=== PATIENT | male | born 1960 | race Caucasian/White ===

== ENCOUNTER 2018-02-25 09:21 | Emergency (ER) | payer BC ==
[2018-02-25] MEDS ORDERED: SODIUM CHLORIDE 0.9% 500 ML IV ONE (09:43)
[2018-02-25] MEDS ORDERED: ONDANSETRON HCL IV 4 MG/2 ML VIAL IV ONE (09:43)
[2018-02-25] MEDS ORDERED: HYDROMORPHONE HCL 2 MG/ML VIAL IVP ONE (09:48)
--- NOTE | 2018-02-25 09:48 | Emergency Department Record ---
History of Present Illness - General Chief Complaint: Abdominal Pain Stated Complaint: RIGHT SIDE PAIN Time Seen by Provider: 02/25/18 09:41 Source: Patient Mode of Arrival: Ambulatory Limitations: No limitations - History of Present Illness Initial Comments: The patient is here due the acute onset of RUQ AP about 3 hours ago. The pain is sharp and crampy and is associated with mild nausea but no vomiting. The patient does have a hx of kidney stones in the past and the pain was similar to that. He denies any recent illnesses. MD Complaint: Abdominal pain Onset/Timin -: Hour(s) - Related Data Allergies Allergy/AdvReac Type Severity Reaction Status Date / Time No Known Drug Allergies Allergy Unverified 02/25/18 08:56 Travel Screening - Travel/Exposure Within Last 30 Days Have you traveled within the last 30 days?: No - Travel/Exposure Within Last Year Have you traveled outside the [place] in the last year?: No - Additonal Travel Details Have you been exposed to anyone with a communicable illness?: No - Travel Symptoms Symptom Screening: None Review of Systems Constitutional: Denies: Chills, Fever Eyes: Denies: Eye discharge ENT: Denies: Congestion Respiratory: Denies: Cough, Dyspnea Cardiovascular: Denies: Arrhythmia Endocrine: Denies: Fatigue Gastrointestinal: Reports: Abdominal pain Genitourinary: Denies: Dysuria Musculoskeletal: Denies: Arthralgia Past Medical History - SOCIAL HISTORY Smoking Status: Never smoker Alcohol Use: Occasional - RESPIRATORY Hx Respiratory Disorders: Yes Hx Asthma: Yes - CARDIOVASCULAR Hx Cardio Disorders: No - NEURO Hx Neuro Disorders: No - GI Hx GI Disorders: Yes Hx Reflux: Yes - Hx Genitourinary Disorders: No - ENDOCRINE Hx Endocrine Disorders: No - MUSCULOSKELETAL Hx Musculoskeletal Disorders: Yes Hx Arthritis: Yes - PSYCH Hx Psych Problems: Yes Hx Depression: Yes - HEMATOLOGY/ONCOLOGY Hx Hematology/Oncology Disorders: No Family Medical History Any Significant Family History?: No Hx Cancer: Father Hx Heart Disease: Mother Physical Exam - General General Appearance: Alert, Oriented x3, Cooperative, No acute distress - Head Head exam: Atraumatic, Normocephalic, Normal inspection - Eye Eye exam: Normal appearance, PERRL, EOMI - Neck Neck exam: Normal inspection, Full ROM. negative: Tenderness - Respiratory Respiratory exam: Normal lung sounds bilaterally. negative: Respiratory distress - Cardiovascular Cardiovascular Exam: Regular rate, Normal rhythm, Normal heart sounds - GI/Abdominal GI/Abdominal exam: Soft, Tenderness (There is significant R sided abdominal tenderness.). negative: Rebound, Rigid - Extremities Extremities exam: Normal inspection, Full ROM, Normal capillary refill. negative: Tenderness - Neurological Neurological exam: Alert, Normal gait. negative: Abnormal gait, Motor sensory deficit Course Vital Signs 02/25/18 09:35 Temperature 98.1 F Pulse Rate 70 Respiratory 18 Rate Blood Pressure 165/87 Pulse Ox 97 - Reevaluation(s) Reevaluation #1: The patient is doing better at this time but is still having some pain. I did discuss the lab work and CT result and the need for F/U. 02/25/18 11:05 Reevaluation #2: The patient is doing a lot better now. I did again discuss what appears to be a recently passed ureter stone and also the cysts on the kidneys. He is to F/U with Dr. Hernandez for recheck and possibly outpatient testing for the cysts. 02/25/18 11:15 Medical Decision Making - Data Complexity MDM Data: Labs Ordered and/or Reviewed, X-Ray Ordered and/or Reviewed - Lab Data Result diagrams: 02/25/18 10:00 02/25/18 10:00 - Radiology Data Radiology results: Report reviewed (Abd CT: 2 mm recently passed stone in the bladder with mild residual hydro.) Disposition Disposition: Discharge Clinical Impression: Ureteral stone with hydronephrosis Disposition: Home, Self-Care Condition: (2) Stable Instructions: Renal Colic (ED) Additional Instructions: Please drink plenty of fluids and take the [place] today as directed. Please see Dr. Hernandez next week for recheck and have the official CT report evaluated further due to the kidney cysts. Please return to the ER for any worsening pain , fever, or vomiting. Forms: Patient Portal Access Time of Disposition: 11:18 Quality - Quality Measures Quality Measures: N/A - Blood Pressure Screening View Details: Yes Does Patient Have Any of the Following: No Blood Pressure Classification: Hypertensive Reading Systolic Measurement: 164 Diastolic Measurement: 72 Screening for High Blood Pressure: < First Hypertensive BP, F/U Documented > [ [id number]] First Hypertensive Follow-up Interventions: Referral to alternative/primary care provider.
[2018-02-25 10:10] LABS: HEMATOCRIT 45.4 % (42.0-52.0); HEMOGLOBIN 15.4 gm/dl (14.0-18.0); MEAN CELL VOLUME 90.8 fl (81-97); MEAN CORPUSCULAR HEMOGLOBIN 30.8 pg (27-33); MEAN CORPUSCULAR HGB CONC 33.9 g/dl (32-36); MEAN PLATELET VOLUME 9.6 fl (7.4-10.4); PLATELET COUNT 209 K/uL (130-400); URINE APPEARANCE CLEAR; URINE BILIRUBIN NEGATIVE (NEGATIVE); URINE BLOOD NEGATIVE (NEGATIVE); URINE COLOR YELLOW; URINE GLUCOSE (UA) NEGATIVE (NEGATIVE); URINE KETONE NEGATIVE (NEGATIVE); URINE LEUKOCYTE ESTERASE NEGATIVE (NEGATIVE); URINE NITRITE NEGATIVE (NEGATIVE); URINE PROTEIN NEGATIVE (NEGATIVE); URINE UROBILINOGEN 0.2 E.U./dL (0.20 - 1.00); WHITE BLOOD COUNT W/O DIFF 10.6 K/uL (4.2-12.2)
[2018-02-25 10:18] LABS: BLOOD UREA NITROGEN 16 mg/dL (6-20); CREATININE 1.2 mg/dL (0.7-1.2); EST GLOMERULAR FILTRATION RATE > 60 mL/min
[2018-02-25 10:19] LABS: TOTAL PROTEIN 7.1 g/dL (6.6-8.7)
[2018-02-25 10:21] LABS: GLUCOSE,RANDOM 125 mg/dL (74-109)
[2018-02-25 10:23] LABS: ALBUMIN 4.4 g/dL (4.0-5.0); ALKALINE PHOSPHATASE 82 U/L (40-129); ALT/SGPT 35 U/L (<41); AST/SGOT 24 U/L (10.0-50.0); LIPASE 22 U/L (13-60)
[2018-02-25 10:25] LABS: BILIRUBIN,DIRECT < 0.2 mg/dL (0-0.3)
[2018-02-25] MEDS ORDERED: KETOROLAC 30 MG/ML VIAL IVP ONE (10:44)
[2018-02-25] MEDS ORDERED: HYDROCODONE/APAP 5/325MG TABLET PO ONE (11:15)
--- NOTE | 2018-02-26 07:44 | CT SCAN REPORT ---
EXAM: CT OF THE ABDOMEN AND PELVIS WITHOUT CONTRAST HISTORY: RIGHT UPPER QUADRANT PAIN. TECHNIQUE: Sequential axial images were obtained from the diaphragms through the ischiorectal fossa without intravenous or oral contrast administration. FINDINGS: The visualized lung bases appear normal. The nonopacified liver, gallbladder, pancreas, and spleen appear normal. The adrenal glands appear normal. There is a 2 mm recently passed stone in the urinary bladder. There is mild right hydronephrosis with perinephric fat stranding. There are low density lesions in the left kidney. Lack of contrast limits evaluation. The small and large bowel appears normal. There is calcification within the prostate gland. The osseous structures demonstrate mild degenerative change. IMPRESSION: 2 MM RECENTLY PASSED STONE IN THE URINARY BLADDER. THERE IS MILD RIGHT HYDRONEPHROSIS WITH PERINEPHRIC FAT STRANDING. THERE IS A SMALL ADDITIONAL CALCULI IN THE RIGHT KIDNEY. THERE ARE CYSTIC LESIONS IN THE KIDNEYS WHICH ARE INCOMPLETELY EVALUATED ON THIS EXAMINATION DUE TO LACK OF INTRAVENOUS CONTRAST ADMINISTRATION. JOB NUMBER: [id number] MTDD
== END 2018-02-25 11:32 | disposition home or self-care (01) ==
LOC: ER 09:21
DX: N13.2 Hydronephrosis with renal and ureteral calculous obstruction (principal); R11.0 Nausea; Z87.442 Personal history of urinary calculi
CPT/HCPCS: 74176; 80048; 80076; 81003; 83690; 85027; 96374; 96375; 99284; J1885; J2405